=== PATIENT | female | born 1990 | race African-American/Black ===

== ENCOUNTER 2018-12-09 12:20 | Emergency (ER) | payer OTHER ==
[~2018-12-09] VITALS: Ht 170.2 cm; Wt 68.0 kg
[2018-12-09 12:33] VITALS: BP 116/71
--- NOTE | 2018-12-09 12:33 | NUR ---
PATIENT AMBULATED TO BED 9
--- NOTE | 2018-12-09 12:35 | NUR ---
PT ARRVIED TO ED C/O COLD SX X 2-3WEEKS. LUNG SOUNDS CLEAR ALL THROUGHOUT. NO RESP DISTRESS NOTED. VSS. RIGHT SWOLLEN LYPHM NODES NOTED. PRODUTIVE MOIST COUGH. PATIENT POSITIONED FOR COMFORT; HOB ELEVATED; BEDRAILS UP X2; BED DOWN. ER MD MADE AWARE OF PT STATUS. NKA. DENIES ANY PMH.
--- NOTE | 2018-12-09 12:41 | NUR ---
DR. ACEVEDO AT BEDSIDE EVALUATING PATIENT.
[2018-12-09] MEDS ORDERED: KETOROLAC 30 MG/ML VIAL IM ONE (12:50)
--- NOTE | 2018-12-09 13:10 | NUR ---
LAB AT BEDSIDE
--- NOTE | 2018-12-09 13:11 | NUR ---
STREP SWAB COLLECTED BY MAYA CORRIGAN
--- NOTE | 2018-12-09 13:46 | NUR ---
PT STATES PAIN RELIEF, PAIN LEVEL DECREASED TO 4/10
[2018-12-09 14:02] VITALS: BP 116/71
--- NOTE | 2018-12-09 14:02 | NUR ---
Patient discharged with v/s stable. Written and verbal after care instructions given and explained. Pt encouraged to rest and stay hydrated. Patient alert, oriented and verbalized understanding of instructions. Ambulatory with steady gait. All questions addressed prior to discharge. ID band removed. Patient advised to follow up with PMD. Rx of NAPROXEN 500MG and Prednisone 20mg was given. Patient educated on indication of medication including possible reaction and side effects. Opportunity to ask questions provided and answered.
== END 2018-12-09 14:02 | disposition home or self-care (01) ==
LOC: MED 12:20
DX: J02.8 Acute pharyngitis due to other specified organisms (principal); B97.89 Other viral agents as the cause of diseases classified elsewhere
CPT/HCPCS: 86308; 87081; 96372; 99283; J1885

== ENCOUNTER 2020-07-01 08:27 | Emergency (ER) | payer OTHER ==
[~2020-07-01] VITALS: Ht 165.1 cm; Wt 79.4 kg
--- NOTE | 2020-07-01 08:35 | NUR ---
Pt taken to ER bed 6 for bedside triage.
[2020-07-01 08:38] VITALS: BP 130/69
--- NOTE | 2020-07-01 08:39 | NUR ---
Dr. Jensen is evaluating the patient at bedside.
--- NOTE | 2020-07-01 08:45 | NUR ---
30 Y/O FEMALE C/O LEFT BIG TOE PAIN 5/10 DESCRIBES ACHING S/P CLIPPING LEFT BIG TOE WHEN BUMPING INTO DAUGHTERS TOYS X2DAYS. PT STATES HER RIGH BIG TOE BROKE ALSO X1WEEK AGO. PT DENIE N/V, DENIES FEVER/CHILLS. DENIES PMH NKA
[2020-07-01 09:16] VITALS: BP 130/69
--- NOTE | 2020-07-01 09:16 | NUR ---
Patient discharged with v/s stable. Written and verbal after care instructions given and explained. Patient verbalized understanding. Ambulatory with steady gait. All questions addressed prior to discharge. Advised to follow up with PMD.
== END 2020-07-01 09:16 | disposition home or self-care (01) ==
LOC: MED 08:27
DX: M79.675 Pain in left toe(s) (principal)
CPT/HCPCS: 99281

== ENCOUNTER 2022-01-26 19:47 | Emergency (ER) | payer OTHER ==
[~2022-01-26] VITALS: Ht 165.1 cm; Wt 70.3 kg
[2022-01-26 19:55] VITALS: BP 110/83
--- NOTE | 2022-01-26 19:58 | NUR ---
TO LOBBY A/W BED AMBULATORY
[2022-01-26 20:00] VITALS: BP 110/83
--- NOTE | 2022-01-26 20:24 | NUR ---
SEEN AND EXAMINED BY
[2022-01-26] MEDS ORDERED: BENZ20GE11 MM ×2 (20:39→20:40)
[2022-01-26] MEDS ORDERED: IBUP-2213 PO ×2 (20:39→20:40)
--- NOTE | 2022-01-26 20:52 | NUR ---
Written and verbal after care instructions given and explained. Patient alert, oriented and verbalized understanding of instructions. Ambulatory with steady gait. All questions addressed prior to discharge. ID band removed. Patient advised to follow up with PMD. Rx of BENZOCAINE/MENTHOL/ZINC CHLOR AND IBUPROFEN given. Patient educated on indication of medication including possible reaction and side effects. Opportunity to ask questions provided and answered.
== END 2022-01-26 20:52 | disposition home or self-care (01) ==
LOC: MED 19:47
DX: K08.89 Other specified disorders of teeth and supporting structures (principal); F41.9 Anxiety disorder, unspecified; F90.9 Attention-deficit hyperactivity disorder, unspecified type; Z79.899 Other long term (current) drug therapy
CPT/HCPCS: 99283